=== PATIENT | female | born 1985 | race Two or more races ===

== ENCOUNTER 2019-05-22 20:07 | Emergency (ER) | payer MEDICAID ==
[~2019-05-22] VITALS: Ht 152.4 cm; Wt 57.2 kg
[2019-05-22 20:18] VITALS: BP 144/73
[2019-05-22] MEDS ORDERED: PENI250T2 PO (20:34)
== END 2019-05-22 20:43 | disposition home or self-care (01) ==
LOC: ER 20:08
DX: K08.89 Other specified disorders of teeth and supporting structures (principal); Z79.2 Long term (current) use of antibiotics
CPT/HCPCS: 99283

== ENCOUNTER 2019-08-26 17:00 | Emergency (ER) | payer MEDICAID ==
[~2019-08-26] VITALS: Ht 152.4 cm; Wt 54.0 kg
[2019-08-26 17:08] VITALS: BP 125/85
[2019-08-26] MEDS ORDERED: IBUP-1985 PO (17:47)
[2019-08-26] MEDS ORDERED: CHLO473M3 PO (17:47)
== END 2019-08-26 17:58 | disposition home or self-care (01) ==
LOC: ER 17:01
DX: K08.89 Other specified disorders of teeth and supporting structures (principal); Z85.850 Personal history of malignant neoplasm of thyroid
CPT/HCPCS: 99282

== ENCOUNTER 2019-11-24 22:40 | Emergency (ER) | payer MEDICAID ==
[~2019-11-24] VITALS: Ht 152.4 cm; Wt 61.4 kg
[~2019-11-24 22:40] MED LIST: CHLO473M3 PO; IBUP-1985 PO
[2019-11-24 22:43] VITALS: BP 145/93
[2019-11-24 23:56] LABS: BASOPHILS # (AUTO) 0.1 X10'3 (0-0.2); BASOPHILS % (AUTO) 0.8 % (0-1); EOSINOPHILS # (AUTO) 0.2 X10'3 (0-0.9); EOSINOPHILS % (AUTO) 1.6 % (0-6); HEMATOCRIT 42.7 % (35.0-45.0); HEMOGLOBIN 14.7 g/dl (12.0-16.0); LYMPHOCYTES # (AUTO) 4.3 X10'3 (1.1-4.8); LYMPHOCYTES % (AUTO) 38.3 % (21-51); MEAN CORPUSCULAR HEMOGLOBIN 31.7 PG (27.0-31.0); MEAN CORPUSCULAR HGB CONC 34.5 g/dL (33.0-36.5); MEAN CORPUSCULAR VOLUME 91.9 FL (78-98); MONOCYTES # (AUTO) 0.8 X10'3 (0-0.9); MONOCYTES % (AUTO) 7.6 % (2-12); NEUTROPHILS # (AUTO) 5.8 X10'3 (1.8-7.7); NEUTROPHILS % (AUTO) 51.7 % (42-75); PLATELET COUNT 303 X10'3 (140-440); RED BLOOD COUNT 4.65 X10'6 (4.20-5.60); RED CELL DISTRIBUTION WIDTH 13.4 % (11.5-14.5); WHITE BLOOD COUNT 11.2 X10'3 (4.5-11.0)
[2019-11-25] MEDS ORDERED: ACYC400T PO (00:19)
== END 2019-11-25 00:31 | disposition home or self-care (01) ==
LOC: ER 22:41
DX: K12.0 Recurrent oral aphthae (principal); J45.909 Unspecified asthma, uncomplicated; Z85.850 Personal history of malignant neoplasm of thyroid
CPT/HCPCS: 36415; 80053; 85025; 99283

== ENCOUNTER 2019-11-27 23:30 | Emergency (ER) | payer MEDICAID ==
[~2019-11-27] VITALS: Ht 152.4 cm; Wt 56.0 kg
[~2019-11-27 23:30] MED LIST changes: +ACYC400T PO
[2019-11-28] MEDS ORDERED: LORazepam 2 mg/ml vial IM ONE (00:15)
[2019-11-28] MEDS ORDERED: mag hydrox/Alum hydrox/simeth 30ml oral suspension PO ONE (00:15)
[2019-11-28] MEDS ORDERED: LIDOcaine Viscous 15ml cup MM ONE (00:15)
[2019-11-28] MEDS ORDERED: ALPR-624 PO (00:59)
[2019-11-28 01:15] VITALS: BP 156/89
== END 2019-11-28 01:12 | disposition home or self-care (01) ==
LOC: ER 23:31
DX: J39.2 Other diseases of pharynx (principal); Z79.899 Other long term (current) drug therapy
CPT/HCPCS: 93005; 96372; 99283; J2060

== ENCOUNTER 2024-10-19 19:25 | Emergency (ER) | payer MEDICAID ==
[~2024-10-19] VITALS: Ht 152.4 cm; Wt 57.0 kg
[~2024-10-19 19:25] MED LIST changes: -ACYC400T PO; +ALPR-624 PO; +CHLO473M13 PO; -CHLO473M3 PO
[2024-10-19 20:17] VITALS: BP 141/87; PULSE 65; RESP 16; TEMP 98.4; O2SAT 99
[2024-10-19] MEDS: ondansetron 4mg rapidly disintigrating tab PO ONE (21:05)
[2024-10-19] MEDS ORDERED: ONDA-245 PO (22:17)
== END 2024-10-19 22:30 | disposition home or self-care (01) ==
LOC: ER 19:26
DX: R11.2 Nausea with vomiting, unspecified (principal); R42 Dizziness and giddiness; Z79.899 Other long term (current) drug therapy; Z79.1 Long term (current) use of non-steroidal anti-inflammatories (NSAID)
CPT/HCPCS: 99283